=== PATIENT | female | born 1985 | race Caucasian/White ===

== ENCOUNTER 2016-12-04 18:15 | Emergency (ER) | payer MEDICAID, OTHER ==
[~2016-12-04 18:15] MED LIST: COLA100C3 PO; PREN1CAP7 PO; RANI150T PO
--- NOTE | 2016-12-04 19:15 | PD ---
HPI Chief Complaint Complains of possibly leaking fluid Date Seen: Dec 04, 2016 Travel History International Travel<30 Days: No Contact w/Intl Traveler<30Days: No Known Affected Area: No History of Present Illness HPI Patient is a 31-year-old white female at 37 weeks presents complaining of a vaginal drainage today and loss of mucous plug. She was thinking it might be leaking amniotic fluid, denies bleeding or significant contractions , she is segun on the monitor and but not feeling them. Her heart rate tracing is reactive Para: 1 : 2 History Obstetric History Obstetric History One vaginal delivery Social History Alcohol Use: No Tobacco Use: No Substance Abuse: No Allergies-Medications (Allergen,Severity, Reaction): Coded Allergies: No Known Allergies (Verified , 11/28/16) Home Meds Active Scripts Docusate Sodium (Colace)100 Mg [id number] Mg PO BID PRN (Constipation) #60 CAP Ref 0 Prov:Anabel Ann CNM [facility] 11/21/16 Ranitidine 150 Mg [id number] Mg PO BID #60 TAB Ref 4 Prov:Magalis Hoffmann [facility] 10/29/16 Reported Medications W/O Vit A W/ Fe Fumar (Citranatal [place])27-1-260 Mg Cap1 Cap PO DAILY #30 CAP Ref 0 08/05/16 Review of Systems General / Constitutional: No: Fever, Weight Gain, Chills, Other Eyes: No: Diploplia, Blurred Vision, Visual changes, Pain, Photophobia HENT: No: Headaches, Vertigo, Lightheadedness Cardiovascular: No: Irregular Rhythm, Chest Pain or Discomfort, Palpitations, Tachycardia, Syncope, Varicosities, Edema, Cyanosis Respiratory: No: Cough, Short of Breath, Other Gastrointestinal: No: Nausea, Vomiting, Diarrhea Genitourinary: No: Decreased Urinary Output, Oliguria Musculoskeletal: No: Limited ROM, Weakness, Cramping, Edema, Pain Skin: No Rash, No Itching, No Dryness, No Lumps, No Change in Pigmentation, No Change in Nails, No Alopecia, No Lesions Neurologic: No: Weakness, Dizziness, Syncope, Focal Abnormalities, Coordination Problem, Headache, Slurred Speech, Seizures Psychiatric: No: Depression, Suicidal Ideations, Homicidal Ideation Endocrine: No: Heat Intolerance, Cold Intolerance, Polydipsia, Polyuria, Other Physical Exam Narrative GENERAL: Well-nourished, well-developed patient. SKIN: Warm and dry. HEAD: Normocephalic and atraumatic. EYES: No scleral icterus. No injection or drainage. ENT: No nasal drainage noted. Mucous membranes pink. Airway patent. NECK: Supple, trachea midline. No JVD. CARDIOVASCULAR: Regular rate and rhythm without murmurs, gallops, or rubs. RESPIRATORY: Breath sounds equal bilaterally. No accessory muscle use. BREASTS: Bilateral exam showed no masses , no retractions, no nipple discharge. ABDOMEN/GI: Abdomen soft, non-tender, bowel sounds present, no rebound, no guarding Gravid to [37-] weeks size Fundal Height: [-37] GENITOURINARY: External Genitalia: intact and normal in appearance BUS glands: [-] Cervix: [-] Dilatation: [2-3-] Effacement: [70-] Station: [-2] Presentation: [-vtx] Membranes: [intact ] amnio sure is negative Uterine Contractions: [reg-] FHT's: Category: [-1] Baseline: [133-] Reactive: [yes-] Variability: [mod-] Decels: [-none] EXTREMITIES: No cyanosis or edema. BACK: Nontender without obvious deformity. No CVA tenderness. NEUROLOGICAL: Awake and alert. Motor and sensory grossly within normal limits. Five out of 5 muscle strength in all muscle groups. Normal speech. Data Data Labs Amnio sure negative MDM Interpretation(s) The patient is a 31-year-old white female at 37 weeks who [facility] presents complaining of possibly leaking fluid per vagina. She denies bleeding or significant contractions however she is segun on the monitor. heart rate tracing is reactive, amnio sure is negative, and her cervix is 2-3/ 70 and -2 Plan Plan to discharge her home she has a doctor's appointment tomorrow. She is can keep that appointment and she will return here in the interim if symptoms worsen or she has a greater leakage of fluid Diagnosis Diagnosis: Primary Impression: No leakage of amniotic fluid into vagina Disposition: 01 DISCHARGE HOME Condition: Stable Hadley Alvarez II, MD Dec 04, 2016 19:15
[2017-02-24] MEDS ORDERED: LEVO1IUD4 (14:41)
== END 2016-12-04 20:08 | disposition home or self-care (01) ==
LOC: HOBED 18:15
DX: O26.93 Pregnancy related conditions, unspecified, third trimester (principal); Z3A.37 37 weeks gestation of pregnancy
CPT/HCPCS: 84112; 99283

== ENCOUNTER 2016-12-24 03:05 | Inpatient (IN) | payer MEDICAID ==
[2016-12-24] VITALS (118 sets, daily range): BP systolic 87–143; BP diastolic 29–117; PULSE 59–134; RESP 16–18; TEMP 98–98.5
[~2016-12-24] VITALS: Ht 162.6 cm; Wt 77.1 kg
[2016-12-24] MEDS ORDERED: LACTATED RINGER'S 1000 ML INJ 1,000 ML IV PRN (03:49)
--- NOTE | 2016-12-24 03:49 | PD ---
HPI Chief Complaint LOF Date Seen: Dec 24, 2016 Travel History International Travel<30 Days: No Contact w/Intl Traveler<30Days: No History of Present Illness HPI 31 you at 40w 1d, GAB 12-23-16, presents with c/o LOF clear. Reports LOF beginning at 1230am. Reports occasional contractions. Denies VB. Reports good FM. Denies problems this . Para: 1 : 2 History Past Medical History Medical History: Denies Significant Hx Obstetric History Obstetric History G1 2006 FT male 5# 14oz, [place], no complications Past Surgical History Surgical History: No Previous Surgery Social History Alcohol Use: No Tobacco Use: No Substance Abuse: No Allergies-Medications (Allergen,Severity, Reaction): Coded Allergies: No Known Allergies (Verified , 12/18/16) Home Meds Active Scripts Docusate Sodium (Colace)100 Mg [id number] Mg PO BID PRN (Constipation) #60 CAP Ref 0 Prov:Anabel Ann CNM [facility] 11/21/16 Ranitidine 150 Mg [id number] Mg PO BID #60 TAB Ref 4 Prov:Magalis Hoffmann [employer] [employer] 10/29/16 Reported Medications W/O Vit A W/ Fe Fumar (Citranatal [place])27-1-260 Mg Cap1 Cap PO DAILY #30 CAP Ref 0 08/05/16 Physical Exam AFVSS BP 130/74 Narrative GENERAL: Well-nourished, well-developed patient. SKIN: Warm and dry. HEAD: Normocephalic and atraumatic. EYES: No scleral icterus. No injection or drainage. ENT: No nasal drainage noted. Mucous membranes pink. Airway patent. NECK: Supple, trachea midline. No JVD. CARDIOVASCULAR: Regular rate and rhythm without murmurs, gallops, or rubs. RESPIRATORY: Breath sounds equal bilaterally. No accessory muscle use. BREASTS: Bilateral exam showed no masses , no retractions, no nipple discharge. ABDOMEN/GI: Abdomen soft, non-tender, bowel sounds present, no rebound, no guarding Gravid to [-] weeks size Fundal Height: [-] GENITOURINARY: External Genitalia: intact and normal in appearance BUS glands: [-] Cervix: [-] Dilatation: [4] Effacement: [80] Station: [-1] Presentation: [-] Membranes: [intact or ruptured] Uterine Contractions: [irregular contractions] FHT's: Category: [1] Baseline: [150s] Reactive: [reactive] Variability: [moderate] Decels: [-] EXTREMITIES: No cyanosis or edema. BACK: Nontender without obvious deformity. No CVA tenderness. NEUROLOGICAL: Awake and alert. Motor and sensory grossly within normal limits. Five out of 5 muscle strength in all muscle groups. Normal speech. Data Data Labs records reviewed: PNL- O+/negative, Rubella- immune, RPR- NR, hep B- negative, HIV- negative, GC/Chl- negative, 1hr glucola 130, GBS negative MDM Interpretation(s) at 40w 1d, SROM. Plan Will admit. Close monitoring. Pitocin augmentation as needed. All questions answered. Diagnosis Diagnosis: Primary Impression: 40 weeks gestation of Additional Impressions: PROM (premature rupture of membranes) Irregular contractions Capri Young MD Dec 24, 2016 03:49
--- NOTE | 2016-12-24 03:54 | HHI.HP ---
History & Physical H&P OB ED Note (Detail) Patient Name: Carie Edward Unit Number: [id number] Date of : 1985 Patient Status: Registered Emergency Room Attending Doctor: Capri Young MD HPI HPI Chief Complaint LOF Date Seen: Dec 24, 2016 Travel History International Travel<30 Days: No Contact w/Intl Traveler<30Days: No History of Present Illness HPI 31 you at 40w 1d, GAB 12-23-16, presents with c/o LOF clear. Reports LOF beginning at 1230am. Reports occasional contractions. Denies VB. Reports good FM. Denies problems this . Para: 1 : 2 History (Limited) History Past Medical History Medical History: Denies Significant Hx Obstetric History Obstetric History G1 2006 FT male 5# 14oz, [place], no complications Past Surgical History Surgical History: No Previous Surgery Social History Alcohol Use: No Tobacco Use: No Substance Abuse: No Allergies-Medications Allergies-Medications (Allergen,Severity, Reaction): Coded Allergies: No Known Allergies (Verified , 12/18/16) Home Meds Active Scripts Docusate Sodium (Colace)100 Mg [id number] Mg PO BID PRN (Constipation) #60 CAP Ref 0 Prov:Anabel Ann CNM [facility] 11/21/16 Ranitidine 150 Mg [id number] Mg PO BID #60 TAB Ref 4 Prov:Magalis Hoffmann ACCOUNT SUPPORT MANAGER 10/29/16 Reported Medications W/O Vit A W/ Fe Fumar (Citranatal [place])27-1-260 Mg Cap1 Cap PO DAILY #30 CAP Ref 0 08/05/16 ROS Review of Systems Physical Exam Physical Exam AFVSS BP 130/74 Narrative GENERAL: Well-nourished, well-developed patient. SKIN: Warm and dry. HEAD: Normocephalic and atraumatic. EYES: No scleral icterus. No injection or drainage. ENT: No nasal drainage noted. Mucous membranes pink. Airway patent. NECK: Supple, trachea midline. No JVD. CARDIOVASCULAR: Regular rate and rhythm without murmurs, gallops, or rubs. RESPIRATORY: Breath sounds equal bilaterally. No accessory muscle use. BREASTS: Bilateral exam showed no masses , no retractions, no nipple discharge. ABDOMEN/GI: Abdomen soft, non-tender, bowel sounds present, no rebound, no guarding Gravid to [-] weeks size Fundal Height: [-] GENITOURINARY: External Genitalia: intact and normal in appearance BUS glands: [-] Cervix: [-] Dilatation: [4] Effacement: [80] Station: [-1] Presentation: [-] Membranes: [intact or ruptured] Uterine Contractions: [irregular contractions] FHT's: Category: [1] Baseline: [150s] Reactive: [reactive] Variability: [moderate] Decels: [-] EXTREMITIES: No cyanosis or edema. BACK: Nontender without obvious deformity. No CVA tenderness. NEUROLOGICAL: Awake and alert. Motor and sensory grossly within normal limits. Five out of 5 muscle strength in all muscle groups. Normal speech. Data Data Data Labs records reviewed: PNL- O+/negative, Rubella- immune, RPR- NR, hep B- negative, HIV- negative, GC/Chl- negative, 1hr glucola 130, GBS negative MDM MDM Interpretation(s) at 40w 1d, SROM. Plan Will admit. Close monitoring. Pitocin augmentation as needed. All questions answered. Diagnosis Diagnosis: Primary Impression: 40 weeks gestation of Additional Impressions: PROM (premature rupture of membranes) Irregular contractions Capri Young MD Dec 24, 2016 03:54
[2016-12-24] MEDS ORDERED: MINERAL OIL 10 ML VIAL TOPICAL PRN (04:00)
[2016-12-24] MEDS ORDERED: SODIUM CHLORID 0.9% 500 ML INJ 500 ML IV PRN (04:00)
[2016-12-24] MEDS ORDERED: LIDOCAINE HCL 1% 50 ML VIAL I-DERMAL PRN (04:00)
[2016-12-24] MEDS ORDERED: CITRIC ACID-SODIUM CITRATE LIQ 30 ML UDC PO SCH (04:00)
[2016-12-24] MEDS ORDERED: OXYTOCIN 30 UNITS-500ML PREMIX 500 ML IV ONE (04:00)
[2016-12-24] MEDS ORDERED: LIDOCAINE HCL 1% 50 ML VIAL INFIL PRN (04:00)
[2016-12-24] MEDS ORDERED: SODIUM CHLOR 0.9% 1000 ML INJ 1,000 ML IV PRN (04:09)
[2016-12-24] MEDS: LACTATED RINGER'S 1000 ML INJ 1,000 ML IV SCH ×2 (04:30→07:05)
[2016-12-24 04:36] LABS: AUTOMATED NEUTROPHIL # 8.1 TH/MM3 (1.8-7.7); BASOPHIL # 0.1 TH/MM3 (0-0.2); BASOPHIL % 0.5 % (0.0-2.0); EOSINOPHIL # 0.1 TH/MM3 (0-0.4); EOSINOPHIL % 0.8 % (0.0-4.0); HEMATOCRIT 32.7 % (35.0-46.0); HEMO FLAGS DIFF FINAL; LYMPH % 21.6 % (9.0-44.0); LYMPHOCYTE # 2.6 TH/MM3 (1.0-4.8); MEAN CELL VOLUME 87.1 FL (80.0-100.0); MEAN CORPUSCULAR HEMOGLOBIN 28.6 PG (27.0-34.0); MEAN CORPUSCULAR HGB CONC 32.8 % (32.0-36.0); MONO % 9.3 % (0.0-8.0); NEUT % 67.8 % (16.0-70.0); PLATELET COUNT 220 TH/MM3 (150-450); RED BLOOD COUNT 3.76 MIL/MM3 (4.00-5.30); RED CELL DISTRIBUTION WIDTH 13.8 % (11.6-17.2); WHITE BLOOD COUNT 11.9 TH/MM3 (4.0-11.0)
[2016-12-24 04:38] LABS: BLOOD, URINE NEG (NEG); GLUCOSE,URINE NEG (NEG); KETONE, URINE NEG (NEG); NITRITE,URINE NEG (NEG); PH, URINE 5.5 (5.0-8.5); SQUAMOUS EPITHELIAL CELL URINE 1 /hpf (0-5); URINE COLOR COLORLESS (YELLW/STRAW)
[2016-12-24 04:46] LABS: COMMENT (UR) CULT NOT INDICATED; CULTURE IF INDICATED CULT NOT INDICATED
[2016-12-24] MEDS ORDERED: fentaNYL 2MCG-BUPIV 0.125% INJ 100 ML ONE ×2 (05:06→13:05)
[2016-12-24] MEDS ORDERED: OXYTOCIN 30 UNITS-500ML PREMIX 500 ML IV SCH (09:30)
--- NOTE | 2016-12-24 09:57 | PD.OB.ANTE ---
Subjective Diagnosis: (1) PROM (premature rupture of membranes) Diagnosis: Principal Interval History Patient reports that she is doing well at this time without complaints. Objective Vital Signs Vital Signs Date Time Temp Pulse Resp B/P Pulse Ox O2 Delivery O2 Flow Rate FiO2 12/24/16 09:30 78 119/75 12/24/16 09:30 71 12/24/16 09:25 75 12/24/16 09:20 84 12/24/16 09:15 80 12/24/16 09:15 71 121/67 12/24/16 09:10 73 12/24/16 09:05 100 12/24/16 09:00 102 116/74 12/24/16 09:00 79 12/24/16 08:55 91 12/24/16 08:54 98.0 12/24/16 08:53 16 12/24/16 08:50 75 12/24/16 08:45 91 108/87 12/24/16 08:45 78 12/24/16 08:40 71 12/24/16 08:35 64 12/24/16 08:30 86 12/24/16 08:30 68 117/65 12/24/16 08:25 68 12/24/16 08:21 18 12/24/16 08:20 77 12/24/16 08:20 72 120/64 12/24/16 08:15 72 96/74 12/24/16 08:15 68 12/24/16 08:10 70 12/24/16 08:05 86 12/24/16 08:00 74 12/24/16 08:00 67 108/72 12/24/16 07:55 68 12/24/16 07:50 79 12/24/16 07:45 71 12/24/16 07:45 73 119/62 12/24/16 07:40 68 12/24/16 07:35 77 12/24/16 07:30 95 110/54 12/24/16 07:30 83 12/24/16 07:10 70 12/24/16 07:05 109 12/24/16 07:00 113 113/65 12/24/16 07:00 98.1 12/24/16 07:00 75 12/24/16 06:59 18 12/24/16 06:55 71 12/24/16 06:50 91 12/24/16 06:45 100 102/55 12/24/16 06:45 88 12/24/16 06:35 100 12/24/16 06:30 84 121/56 12/24/16 06:30 75 12/24/16 06:25 82 12/24/16 06:20 80 12/24/16 06:15 111 131/97 12/24/16 06:15 79 12/24/16 06:10 103 116/57 12/24/16 06:10 80 12/24/16 06:06 77 126/61 12/24/16 06:05 107 12/24/16 06:00 91 12/24/16 06:00 85 133/70 12/24/16 05:55 89 12/24/16 05:55 80 116/54 12/24/16 05:50 87 12/24/16 05:50 78 126/58 12/24/16 05:45 93 133/77 12/24/16 05:45 74 12/24/16 05:40 98 12/24/16 05:40 81 140/78 12/24/16 05:36 78 140/117 12/24/16 04:03 81 140/75 Lab & Micro Results Test 12/24/16 12/24/16 03:22 04:15 Urine Color COLORLESS Urine Turbidity CLEAR Urine pH 5.5 Urine Specific [place] 1.002 Urine Protein NEG mg/dL Urine Glucose (UA) NEG mg/dL Urine Ketones NEG mg/dL Urine Occult Blood NEG Urine Nitrite NEG Urine Bilirubin NEG Urine Urobilinogen LESS THAN 2.0 MG/DL Urine Leukocyte Esterase NEG Urine RBC LESS THAN 1 /hpf Urine WBC LESS THAN 1 /hpf Urine Squamous Epithelial 1 /hpf Cells Microscopic Urinalysis Comment CULT NOT INDICATED White Blood Count 11.9 TH/MM3 Red Blood Count 3.76 MIL/MM3 Hemoglobin 10.7 GM/DL Hematocrit 32.7 % Mean Corpuscular Volume 87.1 FL Mean Corpuscular Hemoglobin 28.6 PG Mean Corpuscular Hemoglobin 32.8 % Concent Red Cell Distribution Width 13.8 % Platelet Count 220 TH/MM3 Mean Platelet Volume 7.4 FL Neutrophils (%) (Auto) 67.8 % Lymphocytes (%) (Auto) 21.6 % Monocytes (%) (Auto) 9.3 % Eosinophils (%) (Auto) 0.8 % Basophils (%) (Auto) 0.5 % Neutrophils # (Auto) 8.1 TH/MM3 Lymphocytes # (Auto) 2.6 TH/MM3 Monocytes # (Auto) 1.1 TH/MM3 Eosinophils # (Auto) 0.1 TH/MM3 Basophils # (Auto) 0.1 TH/MM3 CBC Comment DIFF FINAL Differential Comment Blood Type O POSITIVE Band and Hold Physical Exam GENERAL: Well-nourished, well-developed patient. GENITOURINARY: (12/24 at 0828 per nursing staff) External Genitalia: intact and normal in appearance Cervix: midposition Dilatation: 4cm Effacement: 80% Station: 0 Presentation: V Membranes: ruptured Uterine Contractions: q3 min FHT's: Category: 1 Baseline: 130 Reactive: Y Variability: Mod Decels: None Assessment and Plan Problem List: (1) PROM (premature rupture of membranes) Status: Acute Assessment & Plan: at 40w 1d, SROM. GBS- -Persistently 4 cm dilation since last check -Will start Pitocin 09-15-29 -Continue EFM- reassuring at this time Remarks IUPC placed at ~1110 Ranjith Kelly MD R2 Dec 24, 2016 09:57
[2016-12-24 12:54] LABS: RAPID PLASMA REAGIN SCREEN NON-REACTIVE (NON-REACTVE)
[2016-12-24] MEDS ORDERED: MEASLES, MUMPS, RUBELLA VACCINE 0.5 ML VIAL SQ ONE (16:00)
[2016-12-24] MEDS ORDERED: DIPHTH/TETANUS/ACEL PERTUSSIS (BOOSTER) 0.5 ML VIAL/PFS IM ONE (16:00)
[2016-12-24] MEDS ORDERED: OXYTOCIN 10 UNIT/ML AMP ONE (17:00)
--- NOTE | 2016-12-24 17:43 | PD.OB.DELI ---
Delivery Date: Dec 24, 2016 Anesthesia: Epidural Episiotomy: None Vaginal Delivery: Normal Presentation: Occiput anterior Nuchal Cord: None Delayed cord clamping (45 sec): Yes : Female One Minute : 9 Five Minute : 9 Weight: 3445g Placenta: Spontaneous delivery Laceration: Vaginal laceration, 1 deg Repair: Vicryl running Additional Information Spontaneous VD performed by Dr. Florentino, supervised by Dr. Jones and assisted by Dr. Kelly. Mom and baby doing well. (Roxann Florentino MD R1) Collaborating MD Comments done under direct supervision with bilateral periurethral lacerations. Left laceration repaired with 4-0 vicryl suture. (Kyra Jones MD) Roxann Florentino MD R1 Dec 24, 2016 17:43 Kyra Jones MD Dec 24, 2016 18:23
[2016-12-24] MEDS ORDERED: BENZOCAINE 20% TOPICAL SPRAY 60 ML CAN TOPICAL PRN (17:45)
[2016-12-24] MEDS ORDERED: SODIUM CHLORIDE 0.9% FLUSH 10 ML FLUSH IV FLUSH PRN (17:45)
[2016-12-24] MEDS ORDERED: ONDANSETRON ODT 4 MG TAB PO PRN (17:45)
[2016-12-24] MEDS ORDERED: ALUMINUM/MAGNESIUM/SIMETH 30 ML CUP PO PRN (17:45)
[2016-12-24] MEDS ORDERED: oxyCODONE/ACETAMINOPHEN 5 MG/325 MG TAB PO PRN (17:45)
[2016-12-24] MEDS ORDERED: WITCH HAZEL 50%/GLYCERIN 12.5% 40 PAD JAR TOPICAL PRN (17:45)
[2016-12-24] MEDS ORDERED: DOCUSATE SODIUM 50 MG/SENNA 8.6 MG TAB PO PRN (17:45)
[2016-12-24] MEDS ORDERED: ZOLPIDEM TARTRATE 5 MG TAB PO PRN (17:45)
[2016-12-24] MEDS ORDERED: ACETAMINOPHEN 325 MG TAB PO PRN (17:45)
[2016-12-24] MEDS ORDERED: OXYTOCIN 10 UNIT/ML AMP IM ONE (18:15)
[2016-12-24] MEDS ORDERED: SODIUM CHLORIDE 0.9% FLUSH 10 ML FLUSH IV FLUSH SCH (21:00)
[2016-12-24] MEDS: IBUPROFEN 600 MG TAB PO PRN (21:22)
[2016-12-24] MEDS: oxyCODONE/ACETAMINOPHEN 5 MG/325 MG TAB PO PRN (21:26)
[2016-12-25] MEDS: IBUPROFEN 600 MG TAB PO PRN ×3 (05:00→17:42)
--- NOTE | 2016-12-25 07:20 | HHI.OB ---
Subjective Post Day: 1 Remarks day # 1. AFVSS overnight. Pain well-controlled. Lochia is more than a period. Denies dysuria. No breast tenderness. She is feeding the baby via breast. Appetite good. No nausea or vomiting. Positive flatus. No bowel movement. Ambulating well. Denies calf pain, shortness of breath, or cough. Otherwise, she is doing well this morning and has no other complaints. (Eko, Roxann U R1) Objective Vitals/I&O Vital Signs Date Time Temp Pulse Resp B/P Pulse Ox O2 Delivery O2 Flow Rate FiO2 12/24/16 19:05 98.5 74 129/73 12/24/16 18:25 16 12/24/16 18:22 69 132/65 12/24/16 18:15 79 135/74 12/24/16 18:10 18 12/24/16 18:05 75 131/66 12/24/16 18:01 79 98/52 12/24/16 17:55 18 12/24/16 17:46 78 121/64 12/24/16 17:40 98.4 12/24/16 17:32 18 12/24/16 17:31 83 133/67 12/24/16 17:25 18 12/24/16 17:16 88 125/78 12/24/16 17:04 102 125/72 12/24/16 17:01 108 131/83 12/24/16 16:46 91 138/92 12/24/16 16:36 94 143/75 12/24/16 16:25 76 116/67 12/24/16 16:16 134 142/89 12/24/16 16:01 87 135/78 12/24/16 16:00 16 12/24/16 15:45 71 126/78 12/24/16 15:42 68 128/68 12/24/16 14:55 71 133/80 12/24/16 14:54 16 12/24/16 14:54 98.1 12/24/16 14:16 64 108/62 12/24/16 14:11 74 94/55 12/24/16 14:01 69 100/29 12/24/16 13:57 68 87/69 12/24/16 13:55 98.0 12/24/16 13:54 18 12/24/16 13:45 69 118/78 12/24/16 13:30 65 115/74 12/24/16 13:16 62 126/70 12/24/16 13:00 16 12/24/16 12:59 59 124/73 12/24/16 12:45 67 117/72 12/24/16 12:30 62 117/76 12/24/16 12:15 65 118/74 12/24/16 12:03 72 135/78 12/24/16 12:00 63 118/71 12/24/16 11:57 98.1 16 12/24/16 11:45 74 119/76 12/24/16 11:32 67 119/74 12/24/16 11:31 88 98/37 12/24/16 11:23 16 12/24/16 11:15 69 138/88 12/24/16 11:00 68 123/66 12/24/16 10:55 66 121/75 12/24/16 10:50 76 12/24/16 10:45 64 124/62 12/24/16 10:45 72 12/24/16 10:40 82 12/24/16 10:35 66 12/24/16 10:31 69 126/61 12/24/16 10:30 71 12/24/16 10:29 98.0 16 12/24/16 10:25 69 123/63 12/24/16 10:25 67 12/24/16 10:20 73 12/24/16 10:15 65 12/24/16 10:15 73 126/65 12/24/16 10:10 61 12/24/16 10:05 74 12/24/16 10:00 64 12/24/16 10:00 71 120/63 12/24/16 09:55 64 12/24/16 09:50 76 12/24/16 09:45 66 121/78 12/24/16 09:45 73 12/24/16 09:40 71 12/24/16 09:35 71 12/24/16 09:30 78 119/75 12/24/16 09:30 71 12/24/16 09:25 75 12/24/16 09:20 84 12/24/16 09:15 80 12/24/16 09:15 71 121/67 12/24/16 09:10 73 12/24/16 09:05 100 12/24/16 09:00 102 116/74 12/24/16 09:00 79 12/24/16 08:55 91 12/24/16 08:54 98.0 12/24/16 08:53 16 12/24/16 08:50 75 12/24/16 08:45 91 108/87 12/24/16 08:45 78 12/24/16 08:40 71 12/24/16 08:35 64 12/24/16 08:30 86 12/24/16 08:30 68 117/65 12/24/16 08:25 68 12/24/16 08:21 18 12/24/16 08:20 77 12/24/16 08:20 72 120/64 12/24/16 08:15 72 96/74 12/24/16 08:15 68 12/24/16 08:10 70 12/24/16 08:05 86 12/24/16 08:00 74 12/24/16 08:00 67 108/72 12/24/16 07:55 68 12/24/16 07:50 79 12/24/16 07:45 71 12/24/16 07:45 73 119/62 12/24/16 07:40 68 12/24/16 07:35 77 12/24/16 07:30 95 110/54 12/24/16 07:30 83 Objective Remarks GENERAL: Well-nourished, well-developed patient. CARDIOVASCULAR: Regular rate and rhythm without murmurs, gallops, or rubs. RESPIRATORY: Breath sounds equal bilaterally. No accessory muscle use. ABDOMEN/GI: Abdomen soft, non-tender. Fundus: Firm, non-tender at umbilicus. GENITOURINARY: Light to moderate bleeding. EXTREMITIES: No cyanosis or edema, non-tender, without signs of DVT. Medications and IVs Current Medications Medications (Trade) Dose Ordered Sig/Gigi Route Start Time Stop Time Status Last Admin (NS Flush) 2 ml BID IV FLUSH 12/24/16 21:00 (NS Flush) 2 ml UNSCH PRN IV FLUSH 12/24/16 17:45 (Tylenol) 650 mg Q4H PRN PO 12/24/16 17:45 (Motrin) 600 mg Q6H PRN PO 12/24/16 17:45 12/25/16 05:00 (Percocet 5-325 Mg) 1 tab Q4H PRN PO 12/24/16 17:45 12/25/16 04:59 (Percocet 5-325 Mg) 2 tab Q4H PRN PO 12/24/16 17:45 12/24/16 21:26 (Americaine 20% Top Spr) 1 spray Q4H PRN TOPICAL 12/24/16 17:45 12/25/16 04:59 (Tucks Pads) 1 applic QID PRN TOPICAL 12/24/16 17:45 12/25/16 04:59 (Lili-Colace) 2 tab Q12H PRN PO 12/24/16 17:45 (Ambien) 5 mg HS PRN PO 12/24/16 17:45 (Mag-Al Plus Susp Liq) 15 ml Q8H PRN PO 12/24/16 17:45 (Zofran Odt) 4 mg Q6H PRN PO 12/24/16 17:45 (Roxann Florentino MD R1) Assessment/Plan Assessment and Plan 31 y/o female who is PPD# 1 s/p -Continue routine care -Motrin PRN for pain -Pericolase PRN for constipation -Encouraged OOB. Advised pelvic rest for 6 wks -Will need a follow-up appointment within 6 wks -Re: ctrl - would like an IUD -D/c in [address] Jones Discharge Planning Anticipate discharge in 1 day (Roxann Florentino MD R1) Collaborating MD Comments I agree with care and have discussed management with resident team (Kyra Jones MD) Roxann Florentino MD R1 Dec 25, 2016 07:19 Kyra Jones MD Dec 25, 2016 09:08
[2016-12-25 08:50] VITALS: BP 118/70; PULSE 75; RESP 16; TEMP 97.9
[2016-12-25] MEDS: oxyCODONE/ACETAMINOPHEN 5 MG/325 MG TAB PO PRN ×2 (11:51→17:42)
[2016-12-25 19:43] VITALS: BP 129/72; PULSE 74; RESP 16; TEMP 97.9; O2SAT 98
[2016-12-26] MEDS: IBUPROFEN 600 MG TAB PO PRN ×2 (00:01→07:02)
[2016-12-26] MEDS: oxyCODONE/ACETAMINOPHEN 5 MG/325 MG TAB PO PRN ×2 (00:01→07:02)
--- NOTE | 2016-12-26 07:19 | HHI.OB ---
Subjective Post Day: 2 Remarks day # 2. AFVSS overnight. Pain well-controlled. Lochia is less than a period. Denies dysuria. No breast tenderness. She is feeding the baby via breast. Appetite good. No nausea or vomiting. Positive flatus. No bowel movement. Ambulating well. Denies calf pain, shortness of breath, or cough. Otherwise, she is doing well this morning and has no other complaints. Objective Vitals/I&O Vital Signs Date Time Temp Pulse Resp B/P Pulse Ox O2 Delivery O2 Flow Rate FiO2 12/25/16 19:43 97.9 74 16 129/72 98 12/25/16 08:50 97.9 75 16 118/70 Objective Remarks GENERAL: Well-nourished, well-developed patient. CARDIOVASCULAR: Regular rate and rhythm without murmurs, gallops, or rubs. RESPIRATORY: Breath sounds equal bilaterally. No accessory muscle use. ABDOMEN/GI: Abdomen soft, non-tender. Fundus: Firm, non-tender at umbilicus. GENITOURINARY: Light to moderate bleeding. EXTREMITIES: No cyanosis or edema, non-tender, without signs of DVT. Medications and IVs Current Medications Medications (Trade) Dose Ordered Sig/Gigi Route Start Time Stop Time Status Last Admin (NS Flush) 2 ml BID IV FLUSH 12/24/16 21:00 (NS Flush) 2 ml UNSCH PRN IV FLUSH 12/24/16 17:45 (Tylenol) 650 mg Q4H PRN PO 12/24/16 17:45 (Motrin) 600 mg Q6H PRN PO 12/24/16 17:45 12/26/16 07:02 (Percocet 5-325 Mg) 1 tab Q4H PRN PO 12/24/16 17:45 12/25/16 04:59 (Percocet 5-325 Mg) 2 tab Q4H PRN PO 12/24/16 17:45 12/26/16 07:02 (Americaine 20% Top Spr) 1 spray Q4H PRN TOPICAL 12/24/16 17:45 12/25/16 04:59 (Tucks Pads) 1 applic QID PRN TOPICAL 12/24/16 17:45 12/25/16 04:59 (Lili-Colace) 2 tab Q12H PRN PO 12/24/16 17:45 (Ambien) 5 mg HS PRN PO 12/24/16 17:45 (Mag-Al Plus Susp Liq) 15 ml Q8H PRN PO 12/24/16 17:45 (Zofran Odt) 4 mg Q6H PRN PO 12/24/16 17:45 Assessment/Plan Assessment and Plan 31 y/o female who is PPD# 2 s/p -Continue routine care -Motrin PRN for pain -Pericolase PRN for constipation -Encouraged OOB. Advised pelvic rest for 6 wks -Will need a follow-up appointment within 6 wks -Re: ctrl - would like an IUD -D/c today Discussed with Dr. Alvarez Discharge Planning Anticipate discharge in 1 day Roxann Florentino MD R1 Dec 26, 2016 07:19
[2016-12-26] MEDS ORDERED: OXYC1TAB63 PO (07:33)
[2016-12-26] MEDS ORDERED: IBUP-232 PO (07:33)
--- NOTE | 2016-12-26 07:34 | HHI.DCPOC ---
Discharge Care Plan Diagnosis: (1) 40 weeks gestation of (2) Vaginal delivery Report Symptoms to Your Doctor -Temperate above 100.5 degrees -Redness, of incision or excessive or foul smelling drainage -Unusual pain or calf pain -Increased vaginal bleeding -Painful or difficulty urinating -Feelings of extreme sadness or anxiety after 2 weeks Goals to Promote Your Health * To prevent worsening of your condition and complications * To maintain your health at the optimal level Directions to Meet Your Goals Take your medications as prescribed Follow your dietary instruction Follow activity as directed Ensure plenty of rest for recovery Drink fluids for hydration Keep your appointments as scheduled Take your immunizations and boosters as scheduled If your symptoms worsen call your PCP, if no PCP go to Urgent Care Center or Emergency Room Smoking is Dangerous to Your Health. Avoid second hand smoke Call the 24-hour crisis hotline for domestic abuse at Roxann Florentino MD R1 Dec 26, 2016 07:34
[2016-12-26 08:15] VITALS: BP 119/62; PULSE 66; RESP 16; TEMP 97.7
[2016-12-26 08:45] VITALS: RESP 16
[2017-02-24] MEDS ORDERED: LEVO1IUD4 (14:41)
== END 2016-12-26 09:51 | disposition home or self-care (01) | DRG 775 ==
LOC: HOBED 03:05 → H2EB 03:50 → H1EA 19:14
PROVIDERS: ADMIT Obstetrics & Gynecology; ATTEND Obstetrics & Gynecology
PROC: 10E0XZZ Delivery of Products of Conception, External Approach (ICD-10-PCS; principal; 2016-12-24)
PROC: 0HQ9XZZ Repair Perineum Skin, External Approach (ICD-10-PCS; 2016-12-24)
DX: O48.0 Post-term pregnancy (principal); O71.82 Other specified trauma to perineum and vulva; Z3A.40 40 weeks gestation of pregnancy; Z37.0 Single live birth
CPT/HCPCS: 81001; 85025; 86592; 86900; 86901; 90715; 99285; J2590; J7120